=== PATIENT | female | born 1955 | race African-American/Black ===

== ENCOUNTER 2020-10-16 07:30 | Outpatient (CLI) | payer MEDICARE ==
--- NOTE | 2020-10-16 08:13 | RAD ---
3 views right shoulder: 10/16/2020 COMPARISON: None HISTORY: Shoulder pain FINDINGS: There is no widening of the acromioclavicular or coracoclavicular interspace. There is no d isplaced fracture or evidence of dislocation seen. IMPRESSION: No acute fracture or dislocation.
== END 2020-10-16 07:31 | disposition home or self-care (01) ==
LOC: RAD-FRANK 07:30
PROVIDERS: ATTEND Nurse Practitioner Family
DX: M25.511 Pain in right shoulder (principal)

== ENCOUNTER 2020-12-08 08:54 | Outpatient (CLI) | payer MEDICARE | END 2020-12-08 08:55 | disposition home or self-care (01) | LOC: BICMAMMO 08:54 | PROVIDERS: ATTEND Nurse Practitioner Family | DX: Z12.31 Encounter for screening mammogram for malignant neoplasm of breast (principal); Z80.3 Family history of malignant neoplasm of breast | CPT/HCPCS: 77063; 77067 ==

== ENCOUNTER 2021-02-13 13:55 | Outpatient (CLI) | payer MEDICARE | END 2021-02-13 13:56 | disposition home or self-care (01) | LOC: SCSMRI 13:55 | PROVIDERS: ATTEND Nurse Practitioner Family | DX: M79.621 Pain in right upper arm (principal); M75.111 Incomplete rotator cuff tear or rupture of right shoulder, not specified as traumatic; M75.51 Bursitis of right shoulder; M19.011 Primary osteoarthritis, right shoulder; M25.811 Other specified joint disorders, right shoulder; M62.89 Other specified disorders of muscle ==

== ENCOUNTER 2021-09-27 07:26 | Outpatient (CLI) | payer MEDICARE | END 2021-09-27 07:27 | disposition home or self-care (01) | LOC: ULT 07:26 | PROVIDERS: ATTEND Nurse Practitioner Family | DX: M79.662 Pain in left lower leg (principal) ==

== ENCOUNTER 2024-02-13 13:31 | Outpatient (CLI) | payer MEDICARE | END 2024-02-13 13:32 | disposition home or self-care (01) | LOC: BICMAMMO 13:31 | PROVIDERS: ATTEND Nurse Practitioner Family | DX: N63.25 Unspecified lump in the left breast, overlapping quadrants (principal); R59.0 Localized enlarged lymph nodes; Z51.81 Encounter for therapeutic drug level monitoring; I73.9 Peripheral vascular disease, unspecified; Z79.899 Other long term (current) drug therapy | CPT/HCPCS: 76642; 77066; 80048; 85025; 85610; 85730; G0279; 36415 ==

== ENCOUNTER → 2024-02-24 | Day surgery (SDC) | payer MEDICARE | LOC: BICULT 12:13 | PROVIDERS: ATTEND Nurse Practitioner Family | PROC: 0H95XZX Drainage of Chest Skin, External Approach, Diagnostic (ICD-10-PCS; principal; 2024-02-24) | DX: C50.212 Malignant neoplasm of upper-inner quadrant of left female breast (principal); C77.3 Secondary and unspecified malignant neoplasm of axilla and upper limb lymph nodes; N63.20 Unspecified lump in the left breast, unspecified quadrant; R92.8 Other abnormal and inconclusive findings on diagnostic imaging of breast | CPT/HCPCS: 19083; 38505; 76942; 88305; 88341; 88342; 88361 ==

== ENCOUNTER 2024-03-19 08:57 | Outpatient (CLI) | payer MEDICARE ==
[2024-03-19] MEDS ORDERED: Iopamidol 370 76% 100 ML VIAL ONE (12:10)
== END 2024-03-19 08:58 | disposition home or self-care (01) ==
LOC: CT 08:57
PROVIDERS: ATTEND Internal Medicine Hematology & Oncology
DX: C50.412 Malignant neoplasm of upper-outer quadrant of left female breast (principal); G95.9 Disease of spinal cord, unspecified; I26.99 Other pulmonary embolism without acute cor pulmonale; N63.20 Unspecified lump in the left breast, unspecified quadrant; M15.9 Polyosteoarthritis, unspecified; M27.8 Other specified diseases of jaws
CPT/HCPCS: 71260; 74177; 78306; 82565; A9503

== ENCOUNTER 2024-03-24 13:22 | Outpatient (CLI) | payer MEDICARE | END 2024-03-24 13:23 | disposition home or self-care (01) | LOC: BICMRI 13:22 | PROVIDERS: ATTEND Surgery | DX: C50.812 Malignant neoplasm of overlapping sites of left female breast (principal); N63.22 Unspecified lump in the left breast, upper inner quadrant | CPT/HCPCS: 82565; C8908 ==

== ENCOUNTER 2024-03-31 13:18 | Outpatient (CLI) | payer MEDICARE | END 2024-03-31 13:19 | disposition home or self-care (01) | LOC: ULT 13:18 | PROVIDERS: ATTEND Internal Medicine Hematology & Oncology | DX: Z51.11 Encounter for antineoplastic chemotherapy (principal); C50.412 Malignant neoplasm of upper-outer quadrant of left female breast; I42.7 Cardiomyopathy due to drug and external agent; I08.0 Rheumatic disorders of both mitral and aortic valves | CPT/HCPCS: 93306 ==

== ENCOUNTER 2024-04-08 11:18 | Emergency (ER) | payer MEDICARE ==
[~2024-04-08 11:18] MED LIST: Iopamidol-370 76% 500 ML MDV (1 ML CHARGE) ONE
[2024-04-08 11:48] LABS: #Basophils Less than 0.03 10x3/uL (0.0-0.2); %Basophils 0.2 % (0.0-1.0); %Eosinophils 1.6 % (0.0-10.0); %Lymphocytes 29.3 % (21.0-51.0); %Monocytes 11.1 % (0.0-10.0); %Neutrophils 57.1 % (42.0-75.0); Hematocrit 34.9 % (36.0-47.0); Hemoglobin 10.9 g/dL (12.0-16.0); Mean Corpuscular HGB CONC 31.2 g/dL (32.0-36.0); Mean Corpuscular Volume 86.4 fL (78.0-98.0); Mean Platelet Volume 10.3 fL (7.4-10.4); Platelet Count 275 10x3/uL (130-400); RBC Distribution Width 15.8 % (11.5-14.5); Red Blood Cell (RBC) Count 4.04 mill/uL (4.20-5.40)
[2024-04-08] MEDS ORDERED: Ondansetron PF 4 MG/2 ML Vial ONE ×2 (12:05→14:03)
[2024-04-08] MEDS ORDERED: Morphine 4 MG/ML VIAL ONE (12:05)
[2024-04-08 12:08] LABS: ALT (SGPT) 17 U/L (8-55); AST (SGOT) 16 U/L (5-34); Albumin 3.7 g/dL (3.4-4.8); Alkaline Phosphatase 99 U/L (40-110); Anion Gap 11 mmol/L (10-20); BUN (Urea Nitrogen) 17 mg/dL (9.8-20.1); Bilirubin, Total 0.5 mg/dL (0.2-1.2); Calc. Creatinine Clearance 0 mL/min (70-130); Calcium 9.5 mg/dL (7.8-10.44); Carbon Dioxide 26 mmol/L (23-31); Chloride 104 mmol/L (98-107); Estimated GFR 83; Globulin 4.3 g/dL (2.4-3.5); Glucose 105 mg/dL (80-115); Lipase 15 U/L (8-78); Potassium 4.1 mmol/L (3.5-5.1); Sodium 137 mmol/L (136-145)
[2024-04-08 12:57] LABS: Bacteria/HPF None Seen HPF (None Seen); Bilirubin Negative (Negative); Blood, Urine Negative (Negative); CAUTI Indications for Culture Pelvic or flank pain; Clarity Clear (Clear); Glucose, Urine (Dipstick) Normal (Negative); Ketone, Urine Negative (Negative); Leukocyte Negative Leu/uL (Negative); Nitrite Negative (Negative); Protein, Urine (Dipstick) Negative (Neg-Trace); RBC/HPF 0-3 HPF (0-3); Squamous Epithelial 0-3 HPF (0-3); Urobilinogen Normal mg/dL (Less than 2); WBC/HPF 0-3 HPF (0-3); pH, Urine 5.5 (5.0-9.0)
[2024-04-08 13:00] LABS: Urine Culture Reflex No No
[2024-04-08] MEDS ORDERED: HYDROmorphone 0.5 MG/0.5 ML SYRINGE ONE ×2 (13:28→13:29)
== END 2024-04-08 14:08 | disposition home or self-care (01) ==
LOC: ERS 11:18
DX: R10.9 Unspecified abdominal pain (principal); M54.9 Dorsalgia, unspecified; I10 Essential (primary) hypertension; Z79.899 Other long term (current) drug therapy
CPT/HCPCS: 74177; 80053; 81001; 83690; 85025; 86300; 96374; 96375; 99284; J1170; J2270; J2405; Q9967

== ENCOUNTER 2024-04-20 09:23 | Outpatient (CLI) | payer MEDICARE ==
[2024-04-20] MEDS ORDERED: Magnevist 469MG/ML 20 ML VIAL ONE (15:38)
== END 2024-04-20 09:24 | disposition home or self-care (01) ==
LOC: BICMRI 09:23
PROVIDERS: ATTEND Internal Medicine Hematology & Oncology
DX: R10.9 Unspecified abdominal pain (principal); C50.412 Malignant neoplasm of upper-outer quadrant of left female breast; C79.51 Secondary malignant neoplasm of bone
CPT/HCPCS: 72197; A9579

== ENCOUNTER 2025-01-20 08:45 | Outpatient (CLI) | payer MEDICARE, MEDICAID | END 2025-01-20 08:46 | disposition home or self-care (01) | LOC: PET 08:45 | PROVIDERS: ATTEND Internal Medicine Hematology & Oncology | DX: C50.412 Malignant neoplasm of upper-outer quadrant of left female breast (principal); C79.51 Secondary malignant neoplasm of bone; Z86.711 Personal history of pulmonary embolism; Z98.890 Other specified postprocedural states | CPT/HCPCS: 78815; A9552 ==

== ENCOUNTER 2025-09-02 08:00 | Outpatient (CLI) | payer MEDICARE, MEDICAID | END 2025-09-02 08:01 | disposition home or self-care (01) | LOC: PET 08:00 | PROVIDERS: ATTEND Internal Medicine Hematology & Oncology | DX: C50.412 Malignant neoplasm of upper-outer quadrant of left female breast (principal); C79.51 Secondary malignant neoplasm of bone; Z86.711 Personal history of pulmonary embolism | CPT/HCPCS: 78815; A9552 ==